=== PATIENT | female | born 1970 | race Caucasian/White ===

== ENCOUNTER 2016-06-17 21:41 | Emergency (ER) | payer OTHER ==
[2016-06-17 21:59] VITALS: BMI 32.3
--- NOTE | 2016-06-17 22:03 | PDOC ---
History of Present Illness - General History Source: Patient - History of Present Illness Initial Comments: 06/17/16 22:27 The patient is a 46 year old female with a significant past medical history of HTN and HLD who presents to the emergency department with complaints of LLQ abdominal pain, fever, and constipation for 3 days. Pt also reports minimal left flank pain. She denies hematuria, dysuria, or any urinary symptoms. She denies chills, nausea, vomiting, chest pain, SOB, headache. <Tyesha Calvin - Last Filed: 06/17/16 22:27> <Carlita Bettencourt - Last Filed: 06/18/16 04:57> - General Chief Complaint: Pain Stated Complaint: ABD. PAIN Time Seen by Provider: 06/17/16 21:49 Past History <Tyesha Calvin - Last Filed: 06/17/16 22:27> - Psycho/Social/Smoking Cessation Hx Suicidal Ideation: No Smoking History: Never smoked Have you smoked in the past 12 months: No Information on smoking cessation initiated: No Hx Alcohol Use: No Drug/Substance Use Hx: No <Carlita Bettencourt - Last Filed: 06/18/16 04:57> - Past Medical History Allergies/Adverse Reactions: Allergies Allergy/AdvReac Type Severity Reaction Status Date / Time meperidine HCl [From Demerol] Allergy Unverified 08/07/12 14:57 Home Medications: Ambulatory Orders Amlodipine Besylate 5 mg PO DAILY 06/17/16 Aspirin [ASA -] 81 mg PO DAILY 06/17/16 Omeprazole 40 mg PO DAILY 06/17/16 Simvastatin 10 mg PO DAILY 06/17/16 Review of Systems - Review of Systems Able to Perform ROS?: Yes Comments:: 06/17/16 22:27 GENERAL/CONSTITUTIONAL: Yes: fever No:chills, weakness, loss of appetite. HEAD, EYES, EARS, NOSE AND THROAT: No: change in vision, ear pain, discharge, sore throat, throat swelling. CARDIOVASCULAR: No: chest pain, lightheadedness, palpitations, syncope RESPIRATORY: No: cough, shortness of breath, wheezing, hemoptysis, stridor. GASTROINTESTINAL:Yes: abdominal pain, constipation No: nausea, vomiting, diarrhea, rectal bleeding. GENITOURINARY:Yes: left flank pain No: dysuria, hematuria, frequency, urgency. MUSCULOSKELETAL: No: back pain, neck pain, joint pain, muscle swelling or pain SKIN AND BREASTS: No: lesions, pallor, rash or easy bruising. NEUROLOGIC: No: headache, vertigo, paresthesias, weakness ENDOCRINE: No: unexplained weight gain or loss HEMATOLOGIC/LYMPHATIC: No: anemia, easy bleeding, swelling nodes All Other Systems: Reviewed and Negative <Tyesha Calvin - Last Filed: 06/17/16 22:27> *Physical Exam - Vital Signs Last Vital Signs Temp Pulse Resp BP Pulse Ox 101.0 F H 97 H 20 124/78 100 06/17/16 21:48 06/17/16 21:48 06/17/16 21:48 06/17/16 21:48 06/17/16 21:48 - Physical Exam Comments: 06/17/16 22:28 GENERAL: The patient is in no acute distress. HEAD: Normal with no signs of trauma. EYES: PERRLA, EOMI, sclera anicteric, conjunctiva clear. ENT: Ears normal, nares patent, oropharynx clear without exudates. Moist mucous membranes. NECK: Normal range of motion, supple without lymphadenopathy, JVD, or masses. LUNGS: Breath sounds equal, clear to auscultation bilaterally. No wheezes, and no crackles. HEART:Regular rate and rhythm, normal S1 and S2 without murmur, rub or gallop. ABDOMEN: + rebound but no guarding. LLQ minimally tender on palpation. Soft, normoactive bowel sounds. EXTREMITIES: Normal range of motion, no edema. No clubbing or cyanosis. No erythema, or tenderness. NEUROLOGICAL: Cranial nerves II through XII grossly intact. Normal speech. No focal neurological deficits. MUSCULOSKELETAL: Back non-tender to palpation, no CVA tenderness SKIN: Warm, Dry, normal turgor, no rashes or lesions noted. <Tyesha Calvin - Last Filed: 06/17/16 22:27> - Vital Signs Last Vital Signs Temp Pulse Resp BP Pulse Ox 101.0 F H 97 H 20 124/78 100 06/17/16 21:48 06/17/16 21:48 06/17/16 21:48 06/17/16 21:48 06/17/16 21:48 <Carlita Bettencourt - Last Filed: 06/18/16 04:57> ED Treatment Course - ADDITIONAL ORDERS Additional order review: Laboratory Results 06/17/16 22:15 Urine HCG, Qual Negative <Tyesha Calvin - Last Filed: 06/17/16 22:27> - LABORATORY CBC & Chemistry Diagram: 06/17/16 22:25 06/18/16 00:38 <Carlita Bettencourt - Last Filed: 06/18/16 04:57> Medical Decision Making - Medical Decision Making 06/18/16 01:30 Pt comes with LLQ pain and fever and she has left flank pain and she thinks that it is her kidneys and possibly her kidney stone. She has a clear urine. She has no flank pain on exam. She has mild LLQ pain and no gurarding, only rebound. Pt has normal rest of her exam. WBC is low; Hb/ HCT normal. Chem is normal. CT abd/pelvis shows only ovarian cysts. US shows uterine fibroids and bilateral ovarian cyst. Plan to admit the patient, as I have no idea where her fever is coming from. And I cannot explain her low WBC count. Patient Name: Mell Almanzar THIS IS A PRELIMINARYREPORT FROM [facility] EXAM: CT abdomen and pelvis without contrast IMAGES: 407 INDICATION: Rule out colitis or left renal stone. DATE OF SERVICE: 2016-06-18 01:04:40.0 COMPARISON: none FINDINGS: Lung bases are clear. The visualized cardiac chambers are normal size and configuration. Normal unenhanced liver, gallbladder, pancreas, spleen, adrenal glands and kidneys. The stomach and abdominal small and large bowel are normal. There is no aortic aneurysm. There is no significant retroperitoneal lymphadenopathy. The pelvic small and large bowel are normal. The appendix is normal. There is a 4.0 x 2.6 cm right ovarian cyst. The uterus and left adnexal structures are normal. Urinary bladder is unremarkable. There is no pelvic free fluid. No discrete pelvic lymphadenopathy is identified. IMPRESSION: No renal stones. No bowel inflammation. 4.7 cm right ovarian cyst without free fluid may be further evaluated with ultrasound as clinically warranted. 06/18/16 04:02 Patient Name: Mell Almanzar THIS IS A PRELIMINARYREPORT FROM [facility] EXAM: Transabdominal pelvic ultrasound, endovaginal pelvic ultrasound and pelvic duplex IMAGES: 27 INDICATION: Left lower quadrant pain DATE OF SERVICE: 2016-06-18 01:24:15.0 COMPARISON: none FINDINGS: Transabdominal pelvic ultrasound: Evaluation limited by an empty bladder. No masses identified. Endovaginal pelvic ultrasound:Uterus is retroverted and measures 13.3centimeters in length. The endometrium is 8millimeters in thickness which is normal. There is a 5.1 cm posterior fundal fibroid with possible submucosal extension. The right ovary measures 5.6centimeters in length, contains a 4.3 cm cyst and demonstrates normal flow. Left ovary measures 2.8centimeters in length contains a 13 mm cyst and demonstrates normal flow. There is no significant free fluid. Pelvic duplex: There is normal arterial and venous flow in both ovaries. IMPRESSION: 5.1 cm posterior fundal fibroid with possible submucosal extension. Small bilateral ovarian cysts without torsion or significant free fluid. THIS DOCUMENT HAS BEEN ELECTRONICALLY SIGNED 06/18/16 04:05 Patient Name: Mell Almanzar THIS IS A PRELIMINARY REPORT FROM [facility] IMAGES: 2 EXAM DATE AND TIME: 2016-06-18 02:16:14.0 EXAM: X-RAY CHEST No focal lung consolidation or pleural effusions. Cardiomediastinal silhouette normal. Minimal elevation left hemidiaphragm. THIS DOCUMENT HAS BEEN ELECTRONICALLY SIGNED 06/18/16 04:14 Pt wants to AMA, as her fever is gone and she feels fine. SHe understands that we have no diagnosis and she wants to go home. SHe states that she will follow with her PMD <Carlita Bettencourt - Last Filed: 06/18/16 04:57> *DC/Admit/Observation/Transfer - Attestations Scribe Attestion: 06/17/16 22:29 Documentation prepared by Tyesha Calvin, acting as medical claims analyst for Carlita Bettencourt MD. <Tyesha Calvin - Last Filed: 06/17/16 22:27> - Discharge Dispostion Admit: No <Carlita Bettencourt - Last Filed: 06/18/16 04:57> Diagnosis at time of Disposition: Abdominal pain, Fever - Discharge Dispostion Disposition: AGAINST MEDICAL ADVICE Condition at time of disposition: Fair - Referrals Referrals: Gavin Guthrie [Primary Care Provider] -
[2016-06-17] MEDS ORDERED: SODIUM CHLORIDE 0.9% 500 ML INFUS.BAG IV ONE (22:07)
[2016-06-17] MEDS ORDERED: morphine CARPU-JECT 2 MG/1 ML DISP.SYRIN IVPUSH ONE (22:07)
[2016-06-17] MEDS ORDERED: LACTULOSE 20 GM/30 ML UDC (FOR ORAL USE ONLY) PO ONE (22:09)
[2016-06-17] MEDS ORDERED: ONDANSETRON 4 MG/2 ML VIAL IVPUSH ONE (22:09)
[2016-06-17] MEDS ORDERED: morphine CARPU-JECT 2 MG/1 ML DISP.SYRIN ONE (22:12)
[2016-06-17] MEDS ORDERED: LACTULOSE 20 GM/30 ML UDC (FOR ORAL USE ONLY) ONE (22:12)
[2016-06-17] MEDS ORDERED: ONDANSETRON 4 MG/2 ML VIAL ONE (22:13)
[2016-06-17 22:26] LABS: URINE APPEARANCE CLOUDY; URINE BILIRUBIN NEGATIVE (NEGATIVE); URINE BLOOD NEGATIVE (NEGATIVE); URINE COLOR YELLOW; URINE GLUCOSE (UA) NEGATIVE (NEGATIVE); URINE KETONE TRACE (NEGATIVE); URINE LEUK ESTERASE NEGATIVE (NEGATIVE); URINE NITRITE NEGATIVE (NEGATIVE); URINE PROTEIN NEGATIVE (NEGATIVE); URINE UROBILINOGEN NEGATIVE E.U./dl (0.2-1.0)
[2016-06-17 22:40] LABS: BASOPHIL 0.7 % (0-2.0); EOSINOPHIL 0.4 % (0-4.5); MCH 30.8 pg (25.7-33.7); MCHC 34.1 g/dl (32.0-36.0); MEAN CELL VOLUME 90.2 fl (80-96); MEAN PLT VOLUME 8.5 fl (7.5-11.1); NEUTROPHILS 63.1 % (42.8-82.8); PLATELET COUNT 201 K/MM3 (134-434); RDW 13.5 % (11.6-15.6); WHITE BLOOD COUNT 2.9 K/mm3 (4.0-10.0)
[2016-06-17] MEDS ORDERED: ACETAMINOPHEN 325 MG TABLET (FP) PO ONE (22:47)
[2016-06-17] MEDS ORDERED: ACETAMINOPHEN 325 MG TABLET (FP) ONE (22:54)
[2016-06-18 01:22] LABS: ALBUMIN 2.8 g/dl (3.4-5.0); AMYLASE 56 U/L (25-115); ANION GAP 10 (8-16); CALCIUM 7.8 mg/dL (8.5-10.1); CO2 24 mmol/L (21-32); CREATININE 0.7 mg/dL (0.55-1.02); GLUCOSE,RANDOM 124 mg/dL (74-106); SGOT/AST 30 U/L (15-37); SGPT/ALT 22 U/L (12-78)
[2016-06-18 01:24] LABS: ALK PHOS 87 U/L (45-117); BILIRUBIN,TOTAL 0.2 mg/dL (0.2-1.0); TOT PROT 6.5 g/dl (6.4-8.2)
[2016-06-18 02:00] VITALS: BP 109/77; PULSE 94; TEMP 98.8
[2016-06-18] MEDS ORDERED: SODIUM CHLORIDE 0.9% 500 ML INFUS.BAG IV ONE (02:02)
[2016-06-18] MEDS ORDERED: METRONIDAZOLE 500 MG PREMIXED 100 ML IVPB ONE (04:28)
[2016-06-18] MEDS ORDERED: LEVOFLOXACIN 500 MG IVPB 100 ML IVPB ONE (04:28)
[2016-06-18] MEDS ORDERED: POLYETHYLENE GLYCOL 3350 119 GM BTL PO ONE (04:31)
--- NOTE | 2016-06-18 04:32 | PN ---
<Ronal Ferris - Last Filed: 06/18/16 04:31> Teaching Attending Note Name of Resident: Gina Galeas ATTENDING PHYSICIAN STATEMENT I saw and evaluated the patient. I reviewed the resident's note and discussed the case with the resident. I agree with the resident's findings and plan as documented. SUBJECTIVE: OBJECTIVE: ASSESSMENT AND PLAN: <Collin Motta - Last Filed: 06/18/16 05:08> Teaching Attending Note ATTENDING PHYSICIAN STATEMENT I saw and evaluated the patient. I reviewed the resident's note and discussed the case with the resident. I agree with the resident's findings and plan as documented. SUBJECTIVE: The patient is a 46 year old female with a significant past medical history of HTN and HLD who presents with LLQ abdominal pain and feves Pt also reports minimal left flank pain. OBJECTIVE: Vital Signs: Last Vital Signs Temp Pulse Resp BP Pulse Ox 98.8 F 94 H 19 109/77 100 06/18/16 01:59 06/18/16 01:59 06/18/16 01:59 06/18/16 01:59 06/18/16 01:59 Physical Exam: GEN: NAD HEENT: NCAT, PERRL CARD: RRR, S1 S2 RESP: CTAB ABD: NT, BWS x4 EXT: - CCE Labs: CBCD WBC 2.9 K/mm3 (4.0-10.0) L 06/17/16 22:25 RBC 4.58 M/mm3 (3.60-5.2) 06/17/16 22:25 Hgb 14.1 GM/dL (10.7-15.3) 06/17/16 22:25 Hct 41.3 % (32.4-45.2) 06/17/16 22:25 MCV 90.2 fl (80-96) 06/17/16 22:25 MCHC 34.1 g/dl (32.0-36.0) 06/17/16 22:25 RDW 13.5 % (11.6-15.6) 06/17/16 22:25 Plt Count 201 K/MM3 (134-434) 06/17/16 22:25 MPV 8.5 fl (7.5-11.1) 06/17/16 22:25 CMP Sodium 140 mmol/L (136-145) 06/18/16 00:38 Potassium 3.6 mmol/L (3.5-5.1) 06/18/16 00:38 Chloride 106 mmol/L (98-107) 06/18/16 00:38 Carbon Dioxide 24 mmol/L (21-32) 06/18/16 00:38 Anion Gap 10 (8-16) 06/18/16 00:38 BUN 9 mg/dL (7-18) 06/18/16 00:38 Creatinine 0.7 mg/dL (0.55-1.02) 06/18/16 00:38 Creat Clearance w eGFR > 60 (>60) 06/18/16 00:38 Calcium 7.8 mg/dL (8.5-10.1) L 06/18/16 00:38 Total Bilirubin 0.2 mg/dL (0.2-1.0) 06/18/16 00:38 AST 30 U/L (15-37) 06/18/16 00:38 ALT 22 U/L (12-78) 06/18/16 00:38 Alkaline Phosphatase 87 U/L (45-117) 06/18/16 00:38 Total Protein 6.5 g/dl (6.4-8.2) 06/18/16 00:38 Albumin 2.8 g/dl (3.4-5.0) L 06/18/16 00:38 Imaging: CT-Abdomen and pelvis without contrast. Impression: No renal stones. No bowel inflammation. 4.7 cm right ovarian cyst without free fluid may be further evaluated with ultrasound as clinically warranted. X-ray-Chest. Impression: No focal lung consolidation or pleural effusions. Cardiomediastinal silhouette normal. Minimal elevation left hemidiaphragm. Ultra Sound-Transabdominal pelvic, endovaginal pelvic ultrasound and pelvic duplex. Impression: 5.1 cm posterior fundal fibroid with possible submucosal extension. Small bilateral ovarian cysts without torsion or significant free fluid. ASSESSMENT AND PLAN: The patient is a 46 year old female with a significant past medical history of HTN and HLD who presents with fever of unknown origin. 1. Fever of unknown origin-CT abdomen pelvis negative. CXR negative UA negative -IVF -Lemon culture -Hold off antibiotics at this time unknown source -s/p levaquin and amlodipine in ED for questionable colitis although not seen on CT -Monitor in observation, needs outpatient follow up 2. Constipation -Continue colace 3. HTN -Continue with amlodipine 4. HLD -Continue with statin 5. DVT PPX -Low risk ambulate Patient had already signed out AMA upon my arrival in the ED. Risks of leaving explained to patient including worsen fever, abdominal pain. Patient states she understood. Patient was told she should have close follow up with her primary doctor. Documentation prepared by Collin Motta, acting as biomedical equipment technician for Dr. Josy MD.
--- NOTE | 2016-06-18 04:34 | HP ---
HISTORY OF PRESENT ILLNESS: PATIENT SIGNED AMA AND REPORTS THAT SHE NO LONGER HAS ABDOMINAL PAIN AND DOES NOT HAVE A FEVER. PATIENT WAS ADAMANT ABOUT LEAVING. PAPERS WERE SIGNED BEFORE ASSESSING THE PATIENT. HOME MEDICATIONS: Medication Instructions Recorded Amlodipine Besylate 5 mg PO DAILY 06/17/16 Aspirin [ASA -] 81 mg PO DAILY 06/17/16 Omeprazole 40 mg PO DAILY 06/17/16 Simvastatin 10 mg PO DAILY 06/17/16 REVIEW OF SYSTEMS CONSTITUTIONAL: Absent: fever, chills, diaphoresis, generalized weakness, malaise, loss of appetite, weight change HEENT: Absent: rhinorrhea, nasal congestion, throat pain, throat swelling, difficulty swallowing, mouth swelling, ear pain, eye pain, visual changes CARDIOVASCULAR: Absent: chest pain, syncope, palpitations, irregular heart rate, lightheadedness , peripheral edema RESPIRATORY: Absent: cough, shortness of breath, dyspnea with exertion, orthopnea, wheezing, stridor, hemoptysis GASTROINTESTINAL: Absent: abdominal pain, abdominal distension, nausea, vomiting, diarrhea, constipation, melena, hematochezia GENITOURINARY: Absent: dysuria, frequency, urgency, hesitancy, hematuria, flank pain, genital pain MUSCULOSKELETAL: Absent: myalgia, arthralgia, joint swelling, back pain, neck pain SKIN: Absent: rash, itching, pallor HEMATOLOGIC/IMMUNOLOGIC: Absent: easy bleeding, easy bruising, lymphadenopathy, frequent infections ENDOCRINE: Absent: unexplained weight gain, unexplained weight loss, heat intolerance, cold intolerance NEUROLOGIC: Absent: headache, focal weakness or paresthesias, dizziness, unsteady gait, seizure, mental status changes, bladder or bowel incontinence PSYCHIATRIC: Absent: anxiety, depression, suicidal or homicidal ideation, hallucinations. PHYSICAL EXAMINATION Vital Signs - 24 hr 06/17/16 06/18/16 21:48 01:59 Temperature 101.0 F H 98.8 F Pulse Rate 97 H Pulse Rate [ 94 H Left Radial] Respiratory 20 19 Rate Blood Pressure 124/78 Blood Pressure 109/77 [Left Arm] O2 Sat by Pulse 100 100 Oximetry (%) GENERAL: Awake, alert, and fully oriented, in no acute distress. HEAD: Normal with no signs of trauma. EYES: Pupils equal, round and reactive to light, extraocular movements intact, sclera anicteric, conjunctiva clear. No lid lag. EARS, NOSE, THROAT: Ears normal, nares patent, oropharynx clear without exudates. Moist mucous membranes. NECK: Normal range of motion, supple without lymphadenopathy, JVD, or masses. LUNGS: Breath sounds equal, clear to auscultation bilaterally. No wheezes, and no crackles. No accessory muscle use. HEART: Regular rate and rhythm, normal S1 and S2 without murmur, rub or gallop. ABDOMEN: Soft, nontender, not distended, normoactive bowel sounds, no guarding, no rebound, no masses. No hepatomegaly or splenomegaly. MUSCULOSKELETAL: Normal range of motion at all joints. No bony deformities or tenderness. No CVA tenderness. UPPER EXTREMITIES: 2+ pulses, warm, well-perfused. No cyanosis. No clubbing. Cap refill <2 seconds. No peripheral edema. LOWER EXTREMITIES: 2+ pulses, warm, well-perfused. No calf tenderness. No peripheral edema. NEUROLOGICAL: Cranial nerves II-XII intact. Normal speech. Normal gait. PSYCHIATRIC: Cooperative. Good eye contact. Appropriate mood and affect. SKIN: Warm, dry, normal turgor, no rashes or lesions noted. Laboratory Results - last 24 hr 06/17/16 06/17/16 06/17/16 22:15 22:15 22:25 WBC 2.9 L RBC 4.58 Hgb 14.1 Hct 41.3 MCV 90.2 MCHC 34.1 RDW 13.5 Plt Count 201 MPV 8.5 Neutrophils % 63.1 Lymphocytes % 19.2 Monocytes % 16.6 H Eosinophils % 0.4 Basophils % 0.7 Sodium Potassium Chloride Carbon Dioxide Anion Gap BUN Creatinine Creat Clearance w eGFR Random Glucose Lactic Acid Calcium Total Bilirubin AST ALT Alkaline Phosphatase Total Protein Albumin Total Amylase Lipase Urine Color Yellow Urine Appearance Cloudy Urine pH 8.0 Ur Specific [place] 1.015 Urine Protein Negative Urine Glucose (UA) Negative Urine Ketones Trace H Urine Blood Negative Urine Nitrite Negative Urine Bilirubin Negative Urine Urobilinogen Negative Ur Leukocyte Esterase Negative Urine HCG, Qual Negative 06/17/16 06/18/16 06/18/16 22:25 00:02 00:02 WBC RBC Hgb Hct MCV MCHC RDW Plt Count MPV Neutrophils % Lymphocytes % Monocytes % Eosinophils % Basophils % Sodium Cancelled Cancelled Potassium Cancelled Cancelled Chloride Cancelled Cancelled Carbon Dioxide Cancelled Cancelled Anion Gap Cancelled Cancelled BUN Cancelled Cancelled Creatinine Cancelled Cancelled Creat Clearance w eGFR Cancelled Cancelled Random Glucose Cancelled Cancelled Lactic Acid Calcium Cancelled Cancelled Total Bilirubin Cancelled Cancelled AST Cancelled Cancelled ALT Cancelled Cancelled Alkaline Phosphatase Cancelled Cancelled Total Protein Cancelled Cancelled Albumin Cancelled Cancelled Total Amylase Cancelled Cancelled Lipase Cancelled Cancelled Urine Color Urine Appearance Urine pH Ur Specific [place] Urine Protein Urine Glucose (UA) Urine Ketones Urine Blood Urine Nitrite Urine Bilirubin Urine Urobilinogen Ur Leukocyte Esterase Urine HCG, Qual 06/18/16 06/18/16 00:38 02:01 WBC RBC Hgb Hct MCV MCHC RDW Plt Count MPV Neutrophils % Lymphocytes % Monocytes % Eosinophils % Basophils % Sodium 140 Potassium 3.6 Chloride 106 Carbon Dioxide 24 Anion Gap 10 BUN 9 Creatinine 0.7 Creat Clearance w eGFR > 60 Random Glucose 124 H Lactic Acid 0.912 Calcium 7.8 L Total Bilirubin 0.2 AST 30 ALT 22 Alkaline Phosphatase 87 Total Protein 6.5 Albumin 2.8 L Total Amylase 56 Lipase 145 Urine Color Urine Appearance Urine pH Ur Specific [place] Urine Protein Urine Glucose (UA) Urine Ketones Urine Blood Urine Nitrite Urine Bilirubin Urine Urobilinogen Ur Leukocyte Esterase Urine HCG, Qual ASSESSMENT/PLAN: Visit type - Emergency Visit Emergency Visit: Yes Care time: The patient presented to the Emergency Department on the above date and was hospitalized for further evaluation of their emergent condition. - New Patient This patient is new to me today: Yes Date on this admission: 06/18/16 - Critical Care Critical Care patient: No
== END 2016-06-18 05:15 | disposition left against medical advice (07) ==
LOC: MERGE 21:41 → JER 21:41
PROC: 3E033NZ Introduction of Analgesics, Hypnotics, Sedatives into Peripheral Vein, Percutaneous Approach (ICD-10-PCS; principal; 2016-06-17)
PROC: 3E033GC Introduction of Other Therapeutic Substance into Peripheral Vein, Percutaneous Approach (ICD-10-PCS; 2016-06-17)
DX: R50.9 Fever, unspecified (principal); R10.32 Left lower quadrant pain
CPT/HCPCS: 36415; 71020-TC; 74176-TC; 76830-TC; 80053; 81003; 82150; 83605; 83690; 84703; 85025; 87040; 96374; 96375; 99282-25

== ENCOUNTER 2019-08-15 11:50 | Emergency (ER) | payer OTHER ==
[2019-08-15 12:07] VITALS: BP 141/104; PULSE 102; TEMP 98.3
--- NOTE | 2019-08-15 12:14 | PDOC ---
Rapid Medical Evaluation Time Seen by Provider: 08/15/19 12:03 Medical Evaluation: Allergies Allergy/AdvReac Type Severity Reaction Status Date / Time meperidine HCl [From Demerol] Allergy Unverified 08/07/12 14:57 08/15/19 12:04 HPI: The patient is a 49 y/o female with hx of htn, kidney stone, and dyslipidemia who presents for cough and chest soreness with chills x 1 week. The patient has no exposure to coronavirus. - Recent travel. no meds taken today. They are concerned they have coronavirus and present for testing. - difficulty breathing, shortness of breath, lightheadedness, dizziness nausea, vomiting, and diarrhea. Other 12 point ROS reviewed and negative. EXAM: General: NAD, well-appearing, AAO x3. vss ENT: No rhinorrhea or nasal congestion. Neck: FROM, no midline tenderness Lungs: Clear to auscultation bilateral without wheezes rales or rhonchi. Normal excursion. Patient is able to speak in full sentences. Heart: hr 102, S1-S2 present, no murmurs rubs or gallops. Abdomen: Non-distended MSK/Extremities: no decreased ROM, no obvious deformities. No cyanosis Neuro: Normal gait, cranial nerves II through XII grossly intact. SKIN: No obvious rashes or bruising. Color normal appearing A/P: Cough Patient denies recent travel and known COVID exposure. Patient does not meet criteria for testing at this time. We will refer the patient to outpatient testing clinics in the [facility] for further monitoring of their symptoms. Discharge Disposition - Diagnosis Cough - Discharge Dispostion Disposition: HOME Condition at time of disposition: Good - Referrals - Patient Instructions Printed Discharge Instructions: DI for Cough -- Adult Additional Instructions: You were seen for your cough and possible [place] virus (COVID-19) Please call the [facility] [place] to make an appointment for a test [phone] at [facility] at [email or web address] or Please call [phone] from 8:30 a.m. - 6 p.m. Take Tylenol 650mg every 6 hours as needed for fever or pain You may take Robitussin or other over the counter cough syrup. Follow the dosing instructions on the bottle. Warm tea, honey, and salt water gargles may help your symptoms. Please pretend like you tested positive for COVID and self-quarantine for two weeks and follow up with your primary care doctor and the department of health. Return to the ER for shortness of breath, difficulty breathing, chest pain, or if you have any changes in your symptoms. - Post Discharge Activity
--- NOTE | 2019-08-15 12:18 | PDOC ---
*Physical Exam - Vital Signs Last Vital Signs Temp Pulse Resp BP Pulse Ox 98.3 F 102 H 17 141/104 H 97 08/15/19 12:05 08/15/19 12:05 08/15/19 12:05 08/15/19 12:05 08/15/19 12:05 ED Treatment Course - RADIOLOGY Radiology Studies Ordered: Category Date Time Status CXRPORT [CHEST X-RAY PORTABLE*] [RAD] Stat Radiology 08/15/19 12:17 Ordered Medical Decision Making - Medical Decision Making 08/15/19 12:40 CXR- No active cardiopulmonary disease. discharge home Discharge - Discharge Information Problems reviewed: Yes Clinical Impression/Diagnosis: Cough Condition: Good Disposition: HOME - Admission No - Follow up/Referral Referrals: Gavin Guthrie [Primary Care Provider] - - Patient Discharge Instructions Patient Printed Discharge Instructions: DI for Cough -- Adult Additional Instructions: You were seen for your cough and possible [place] virus (COVID-19) Please call the [facility] [place] to make an appointment for a test [phone] at [facility] at [email or web address] or Please call [phone] from 8:30 a.m. - 6 p.m. Take Tylenol 650mg every 6 hours as needed for fever or pain You may take Robitussin or other over the counter cough syrup. Follow the dosing instructions on the bottle. Warm tea, honey, and salt water gargles may help your symptoms. Please pretend like you tested positive for COVID and self-quarantine for two weeks and follow up with your primary care doctor and the department of health. Return to the ER for shortness of breath, difficulty breathing, chest pain, or if you have any changes in your symptoms. - Post Discharge Activity
== END 2019-08-15 13:11 | disposition home or self-care (01) ==
LOC: JER 11:50
DX: R05 Cough (principal)
CPT/HCPCS: 71045-TC-FY; 99283-25